=== PATIENT | male | born 1985 | race Caucasian/White ===

== ENCOUNTER → 2018-05-28 14:00 | Outpatient (CLI) | payer OTHER, SELFPAY ==
--- NOTE | 2018-06-22 17:31 | PM.CARDMON.1 ---
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 Tender Report Referral & Results Date Patient Seen: 05/28/18 Requesting provider: Artie Uribe Indication: Palpitations Duration of monitoring (days): 9 Diary information: There were no diary entries There were 7 patient triggered events associated with sinus rhythm, PACs, and SVT (although this was only 4 beats) Data: Minimum heart rate identified was 40 beats per minute at 05:53 on 05/29/2018 Maximum sinus heart rate was 145 beats per minute at 15:40 on 06/05/2018 Maximum overall heart rate was 156 beats per minute at 13:39 on 05/29/2018 during a 4 beat run of SVT 46,738 PVCs were identified which were approximately 3.8% of identified beats Less than 1% of identified beats were PVCs in origin. Impression: Patient with frequent PACs A single SVT was identified by the computer, without other events the suggesting no significant issue with supraventricular tachycardia Clinical correlation suggested
== END ==
PROVIDERS: PCP Family Medicine; Visit Provider Family Medicine
DX: R00.2 Palpitations (principal)
CPT/HCPCS: 0296T; 0298T